=== PATIENT | female | born 1985 | race Caucasian/White ===

== ENCOUNTER 2017-01-19 22:29 | Emergency (ER) | payer BC ==
[~2017-01-19] VITALS: Ht 157.5 cm; Wt 90.9 kg
[2017-01-19 22:33] VITALS: BP 114/74
== END 2017-01-19 23:57 | disposition home or self-care (01) ==
LOC: ED 23:45
DX: R11.2 Nausea with vomiting, unspecified (principal); R10.84 Generalized abdominal pain
CPT/HCPCS: 99283